=== PATIENT | female | born 1995 | race Hispanic/Latino ===

== ENCOUNTER 2019-10-16 11:31 | Observation (INO) | payer OTHER ==
[~2019-10-16] VITALS: Ht 162.6 cm; Wt 99.3 kg
[~2019-10-16 11:31] MED LIST: PREN-154 PO
[2019-10-16 12:36] LABS: APPEARANCE,URINE Clear (CLEAR); BILIRUBIN,URINE Negative (NEGATIVE); COLOR,URINE Yellow (YELLOW); GLUCOSE, URINE (UA) Negative (NEGATIVE); KETONES,URINE Negative (NEGATIVE); LEUKOCYTE ESTERASE ,URINE Negative (NEGATIVE); NITRATE,URINE Negative (NEGATIVE); OCCULT BLOOD,URINE Negative (NEGATIVE); PROTEIN,URINE Negative (NEGATIVE)
[2019-10-16 12:42] LABS: AMPHET/METH SCREEN,URINE NEGATIVE (NEGATIVE); BARBITURATE SCREEN, URINE NEGATIVE (NEGATIVE); BENZODIAZEPINES SCREEN,URINE NEGATIVE (NEGATIVE); CANNABINOID SCREEN,URINE NEGATIVE (NEGATIVE); COCAINE SCREEN,URINE NEGATIVE (NEGATIVE); OPIATE SCREEN,URINE NEGATIVE (NEGATIVE); PHENCYCLIDINE SCREEN,URINE NEGATIVE (NEGATIVE)
[2019-10-16 13:01] VITALS: BP 96/54
== END 2019-10-16 14:33 | disposition home or self-care (01) ==
LOC: LDH 11:31
DX: O41.00X1 Oligohydramnios, unspecified trimester, fetus 1 (principal); Z3A.23 23 weeks gestation of pregnancy
CPT/HCPCS: 76805; 80305; 81003; G0378 ×4

== ENCOUNTER 2019-12-20 11:09 | Observation (INO) | payer MEDICAID ==
[~2019-12-20] VITALS: Ht 160 cm; Wt 105.7 kg
[2019-12-20 11:46] LABS: APPEARANCE,URINE Clear (CLEAR); BILIRUBIN,URINE Negative (NEGATIVE); COLOR,URINE Yellow (YELLOW); GLUCOSE, URINE (UA) 500 mg/dL (NEGATIVE); KETONES,URINE Trace mg/dL (NEGATIVE); LEUKOCYTE ESTERASE ,URINE Negative (NEGATIVE); NITRATE,URINE Negative (NEGATIVE); OCCULT BLOOD,URINE Negative (NEGATIVE); PROTEIN,URINE Negative (NEGATIVE)
[2019-12-20 11:53] LABS: BACTERIA,URINE Few /HPF (None Seen); RBC,URINE 0-1 /HPF (0-1); WBC,URINE 0-1 /HPF (0-1)
[2019-12-20 13:57] LABS: AMPHET/METH SCREEN,URINE NEGATIVE (NEGATIVE); BARBITURATE SCREEN, URINE NEGATIVE (NEGATIVE); BENZODIAZEPINES SCREEN,URINE NEGATIVE (NEGATIVE); CANNABINOID SCREEN,URINE NEGATIVE (NEGATIVE); COCAINE SCREEN,URINE NEGATIVE (NEGATIVE); OPIATE SCREEN,URINE NEGATIVE (NEGATIVE); PHENCYCLIDINE SCREEN,URINE NEGATIVE (NEGATIVE)
== END 2019-12-20 12:10 | disposition home or self-care (01) ==
LOC: LDH 11:09
PROVIDERS: ADMIT Obstetrics & Gynecology; ATTEND Obstetrics & Gynecology
DX: O26.893 Other specified pregnancy related conditions, third trimester (principal); R10.2 Pelvic and perineal pain; M54.9 Dorsalgia, unspecified; Z3A.32 32 weeks gestation of pregnancy
CPT/HCPCS: 80305; 81001; G0378

== ENCOUNTER 2020-01-13 11:56 | Inpatient (IN) | payer MEDICAID ==
[~2020-01-13] VITALS: Ht 160 cm; Wt 102.5 kg
[2020-01-13] MEDS ORDERED: LACTATED RINGERS 1000ML 1,000 ML IV PRN (12:43)
[2020-01-13] MEDS ORDERED: ROPIVACAINE 0.2% 100ML VIAL 100 ML EP SCH (12:45)
[2020-01-13] MEDS ORDERED: OXYTOCIN 10 USP UNITS/ML 20 UNIT in LACTATED RINGERS 1000ML 1,000 ML IV SCH (12:45)
[2020-01-13] MEDS ORDERED: EPHEDRINE SULFATE 50 MG/ML AMPULE IVP PRN (12:45)
[2020-01-13] MEDS ORDERED: MEPERIDINE-PF 50 MG/ML SYG IVP PRN (12:45)
[2020-01-13] MEDS ORDERED: OXYTOCIN-LR 20 UNITS/1000 ML 1,000 ML IV SCH (12:45)
[2020-01-13] MEDS ORDERED: NALOXONE HCL 0.4 MG/1 ML ML IV PRN (12:45)
[2020-01-13] MEDS ORDERED: PROMETHAZINE HCL 25 MG/ML 1ML AMPULE IM PRN (12:45)
[2020-01-13] MEDS ORDERED: LACTATED RINGERS 500 ML 500 ML IV PRN (12:45)
[2020-01-13 13:04] LABS: HEMATOCRIT 37.4 % (36-48); MEAN CORPUSCULAR HEMOGLOBIN 28.2 pg (27.0-33.0); MEAN CORPUSCULAR HGB CONC 32.4 g/dL (32.0-36.0); MEAN CORPUSCULAR VOLUME 87.2 fL (79-99); PLATELET COUNT (AUTO) 263 K/uL (130-400); RED BLOOD CELL COUNT(AUTO) 4.29 MIL/uL (4.00-5.50); RED CELL DISTRIBUTION WIDTH 13.7 % (11.0-15.5); WHITE BLOOD COUNT (AUTO) 12.5 K/uL (4.8-10.8)
[2020-01-13 13:49] LABS: APPEARANCE,URINE Cloudy (CLEAR); BILIRUBIN,URINE Negative (NEGATIVE); COLOR,URINE Yellow (YELLOW); GLUCOSE, URINE (UA) Negative (NEGATIVE); KETONES,URINE Negative (NEGATIVE); LEUKOCYTE ESTERASE ,URINE Trace (NEGATIVE); NITRATE,URINE Negative (NEGATIVE); OCCULT BLOOD,URINE Negative (NEGATIVE); PROTEIN,URINE Negative (NEGATIVE)
[2020-01-13 14:06] LABS: BACTERIA,URINE Few /HPF (None Seen); RBC,URINE None Seen /HPF (0-1); WBC,URINE 0-1 /HPF (0-1)
[2020-01-13] MEDS ORDERED: PHARMACY COMMUNICATION MISC SCH (14:45)
[2020-01-13] MEDS ORDERED: DEXTROSE 5% IV SCH ×2 (15:00→16:00)
[2020-01-13] MEDS ORDERED: WATER IV SCH ×2 (15:00→16:00)
[2020-01-13] MEDS ORDERED: ZIDOVUDINE IV SCH ×2 (15:00→16:00)
[2020-01-13] MEDS ORDERED: FENTANYL CITRATE PF 50 MCG/1 ML 2ML VIAL ONE (16:26)
[2020-01-13 18:57] LABS: AMPHET/METH SCREEN,URINE NEGATIVE (NEGATIVE); BARBITURATE SCREEN, URINE NEGATIVE (NEGATIVE); BENZODIAZEPINES SCREEN,URINE NEGATIVE (NEGATIVE); CANNABINOID SCREEN,URINE NEGATIVE (NEGATIVE); COCAINE SCREEN,URINE NEGATIVE (NEGATIVE); OPIATE SCREEN,URINE NEGATIVE (NEGATIVE); PHENCYCLIDINE SCREEN,URINE NEGATIVE (NEGATIVE)
[2020-01-13] MEDS ORDERED: LIDOCAINE HCL 1% 20 ML VIAL ONE (19:04)
[2020-01-13] MEDS ORDERED: MEASLES/MUMPS/RUBELLA VACCINE, LIVE 0.5 ML/VIAL SQ PRN (19:45)
[2020-01-13] MEDS ORDERED: WITCH HAZEL 1 PAD TP PRN (19:45)
[2020-01-13] MEDS ORDERED: DIPH,PERTUSS(ACELL),TET VAC/PF 0.5 ML VIAL IM PRN (19:45)
[2020-01-13] MEDS ORDERED: LANOLIN 30GM OINTMENT TP PRN (19:45)
[2020-01-13] MEDS ORDERED: ACETAMINOPHEN 325 MG TAB PO PRN (19:45)
[2020-01-13] MEDS ORDERED: BENZOCAINE/LANOLIN/ALOE VERA 60 ML AEROSOL TP PRN (19:45)
[2020-01-13] MEDS ORDERED: ACETAMINOPHEN-CODEINE 300/30MG TAB PO PRN (19:45)
[2020-01-13] MEDS: DOCUSATE SODIUM 100 MG CAP PO SCH (21:03)
[2020-01-13] MEDS: IBUPROFEN 600 MG TABLET PO PRN (21:03)
[2020-01-13 21:45] VITALS: BP 117/76
[2020-01-13] MEDS ORDERED: FLU VACC QS2019-20 36MOS UP/PF 60 MCG/0.5 ML ML IM ONE (21:45)
[2020-01-13] MEDS ORDERED: DIPH,PERTUSS(ACELL),TET VAC/PF 0.5 ML VIAL IM ONE (21:45)
[2020-01-13] MEDS ORDERED: PREN1TAB80 PO (23:22)
[2020-01-13 23:26] VITALS: BP 100/64
[2020-01-14 03:15] VITALS: BP 102/64
[2020-01-14] MEDS: IBUPROFEN 600 MG TABLET PO PRN ×2 (05:50→17:12)
[2020-01-14] MEDS ORDERED: FLU VACC QS2019-20 36MOS UP/PF 60 MCG/0.5 ML ML IM ONE (06:28)
[2020-01-14 07:13] LABS: RAPID PLASMA REAGIN NONREACTIVE (NONREACTIVE)
[2020-01-14 07:19] VITALS: BP 112/69
[2020-01-14] MEDS: DOCUSATE SODIUM 100 MG CAP PO SCH ×2 (08:52→21:24)
--- NOTE | 2020-01-14 09:50 | NUR ---
DR. RICHARDSON ROUNDED AND INDICATE WILL STAY DUE TO HIV RESULTS AND NEED TO FIND OUT IF READING WAS ACCURATE. PATIENT WAS FINED WITH NEED TO STAY FOR CONFIRMATION ON RESULTS.
[2020-01-14 11:22] VITALS: BP 112/70
--- NOTE | 2020-01-14 14:00 | NUR ---
ASSESSED PATIENT FOR PAIN AND DENIES PAIN. PATIENT BONDING WELL WITH .
--- NOTE | 2020-01-14 14:37 | NUR ---
DEFERRED TRIGGER TO SW IN AM . CM NOTED TRIGGER FOR LACK OF CARE, HIV+ STATSU; SPOKE TO HANH NURSE THIS MORNING, HIV WAS GOING TO BE REPEATED, IF NEGATIVE, WILL BE DISCHARGED, CM WILL DO SCREENING FOR LACK OF CARE. NOTED NOW--- THE SECOND HIV QUALITATIVE IS A PRESUMPTIVE POSITIVE STATUS, THIS IS A NEW FINDING FOR PATIENT, PER NURSE, THE MD SAYS THE PATIENT WAS NEGATIVE IN CLINIC; PATIENT AND BABY KEPT TILL AM; CM WILL DEFER THIS CONSULT TO IN AM Addendum: 01/14/20 at 1444 by SHARA HOPKINS RN CM Amended: Links added.
[2020-01-14 16:00] VITALS: BP_SYST 107; BP_SYST 117; BP_DIAS 74
[2020-01-14 19:30] VITALS: BP 115/74
[2020-01-15] VITALS: BP 108/76
[2020-01-15 03:38] VITALS: BP 114/75
[2020-01-15 08:05] VITALS: BP 116/80
--- NOTE | 2020-01-15 08:15 | NUR ---
ROUNDING DORIS FINLEY CNM AT BEDSIDE TO ASSESS AND TALK TO PT. NEW ORDERS RECEIVED FOR DISCHARGE.
[2020-01-15] MEDS: DOCUSATE SODIUM 100 MG CAP PO SCH (09:00)
[2020-01-15] MEDS: IBUPROFEN 600 MG TABLET PO PRN (09:00)
[2020-01-15 11:20] VITALS: BP 108/74
--- NOTE | 2020-01-15 13:00 | NUR ---
SS REFERRAL Sw spoke to nurse Brenna. HIV confirmation results pending, due anytime now. This is new dx for pt. Pt appears overwhelmed, anxious for results. Delicia met with pt who is , to Matt Alvarez (24) and they have 4 children together 4,3 yro girls and 1 1/2 and NB sons. NB is ELENA ALVAREZ. Pt states they live in a trailer but couple also has a home in [facility]. Pt states her sister Poornima Paz [phone] and her and kids live in [place]. 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 3 children are in [facility] with her mother in law while she is admitted. Pt reports she got her care in [facility] and have provided records. Pt has her mother and in laws in [facility] as well. Pt has a car seat and Dr Ghosh [place]. At this time, pt is not sure where she will dc to. Pending results, if positive, baby will be transferred to [facility]. Pt is not sure if she or will travel with baby. If negative, pt prefers to go back to , but not sure with [place] Virus if it is better to stay her with her sister for baby's appts. Pt is very overwhelmed with new dx and all the restrictions related to the coonavirus. At this time, pt states she has to remain focused and deal with things one at a time. Once she gets results, she will make dc plans accordingly. Pt and remain positive and hopeful that tests are wrong and she will be able to proceed with recovery and baby as they planned. Pt in good spirits, Sw provided emotional support. Addendum: 01/15/20 at 1317 by WALTER SALDIVAR Amended: Links added.
--- NOTE | 2020-01-15 13:20 | NUR ---
DISCHARGE PT LEFT UNIT VIA WHEELCHAIR, ACCOMPANIED BY SIGNIFICANT OTHER. DENIED PAIN AND HAD NO COMPLAINTS. TRANSPORTED BY PERSONAL VEHICLE.
[2020-01-16 07:11] LABS: HEPATITIS Bs ANTIGEN SCREEN P Negative (Negative)
== END 2020-01-15 13:20 | disposition home or self-care (01) | DRG 560 ==
LOC: EDH 11:56 → OBSVTOIN 11:57 → LDH 11:57 → WSH 21:45
PROVIDERS: ADMIT Obstetrics & Gynecology; ATTEND Obstetrics & Gynecology
PROC: 10E0XZZ Delivery of Products of Conception, External Approach (ICD-10-PCS; principal; 2020-01-13)
PROC: 3E0234Z Introduction of Serum, Toxoid and Vaccine into Muscle, Percutaneous Approach (ICD-10-PCS; 2020-01-13)
PROC: 3E02340 Introduction of Influenza Vaccine into Muscle, Percutaneous Approach (ICD-10-PCS; 2020-01-13)
PROC: 3E0R3BZ Introduction of Anesthetic Agent into Spinal Canal, Percutaneous Approach (ICD-10-PCS; 2020-01-13)
PROC: 00HU33Z Insertion of Infusion Device into Spinal Canal, Percutaneous Approach (ICD-10-PCS; 2020-01-13)
DX: O80 Encounter for full-term uncomplicated delivery (principal); Z37.0 Single live birth; Z23 Encounter for immunization; Z3A.38 38 weeks gestation of pregnancy
CPT/HCPCS: 36415; 80305; 81001; 82947; 82948; 85027; 86592; 86701; 86850; 86900; 86901; 87340; 87390; 90715; A4314; G0378; J2590; J2795; J3010; J3485; J7060; Q2035

== ENCOUNTER 2021-07-21 13:59 | Observation (INO) | payer MEDICAID ==
[~2021-07-21] VITALS: Ht 157.5 cm; Wt 107.5 kg
[2021-07-21 13:59] VITALS: BP 132/75
[~2021-07-21 13:59] MED LIST changes: +PREN1TAB80 PO
[2021-07-21 14:39] LABS: APPEARANCE,URINE Clear (CLEAR); BILIRUBIN,URINE Negative (NEGATIVE); COLOR,URINE Dark Yellow (YELLOW); GLUCOSE, URINE (UA) Negative (NEGATIVE); KETONES,URINE Trace mg/dL (NEGATIVE); LEUKOCYTE ESTERASE ,URINE Negative (NEGATIVE); NITRATE,URINE Negative (NEGATIVE); OCCULT BLOOD,URINE Negative (NEGATIVE); PH,URINE 5.5 (5.0-8.0); PROTEIN,URINE Negative (NEGATIVE)
[2021-07-21 18:48] LABS: AMPHET/METH SCREEN,URINE NEGATIVE (NEGATIVE); BARBITURATE SCREEN, URINE NEGATIVE (NEGATIVE); BENZODIAZEPINES SCREEN,URINE NEGATIVE (NEGATIVE); CANNABINOID SCREEN,URINE NEGATIVE (NEGATIVE); COCAINE SCREEN,URINE NEGATIVE (NEGATIVE); OPIATE SCREEN,URINE NEGATIVE (NEGATIVE); PHENCYCLIDINE SCREEN,URINE NEGATIVE (NEGATIVE)
== END 2021-07-21 15:16 | disposition home or self-care (01) ==
LOC: EDH 13:59 → LDH 14:00
PROVIDERS: ADMIT Internal Medicine; ATTEND Internal Medicine
DX: O62.9 Abnormality of forces of labor, unspecified (principal); Z3A.37 37 weeks gestation of pregnancy; Z79.899 Other long term (current) drug therapy
CPT/HCPCS: 80305; 81003; G0378; G0379

== ENCOUNTER 2023-04-21 13:09 | Emergency (ER) | payer MEDICAID ==
[~2023-04-21] VITALS: Ht 165.1 cm; Wt 105.7 kg
[2023-04-21 16:05] VITALS: BP 122/79
[2023-04-21] MEDS ORDERED: CORTSOL AD (16:23)
[2023-04-21] MEDS ORDERED: NAPR-1174 PO (16:30)
[2023-04-21] MEDS ORDERED: KETOROLAC 30MG VIAL (30MG/ML) IM ONE (16:30)
[2023-04-21] MEDS ORDERED: HYDROCODONE/ACETAMINOPHEN 5/325 MG TAB PO ONE (16:30)
== END 2023-04-21 16:38 | disposition home or self-care (01) ==
LOC: EDH 13:09
DX: H60.91 Unspecified otitis externa, right ear (principal)
CPT/HCPCS: 99283; 87880; 96372; J1885